=== PATIENT | female | born 1960 ===

== ENCOUNTER 2025-05-13 09:36 | Day surgery (SDC) | payer OTHER ==
[2025-05-09 12:22] VITALS: BP 160/90
[~2025-05-13] VITALS: Ht 157.5 cm; Wt 62.6 kg
[~2025-05-13 09:36] MED LIST: LEXAPRO5 MG PO; LOSARTAN POTASS25 MG PO; PEPCID AC20 MG PO; PROGRAF PO; [UNRECOGNIZED DRUG - OTHER] PO
[2025-05-13] MEDS ORDERED: CEFTRIAXONE SODIUM 2,000 MG VIAL ONE (10:01)
[2025-05-13] MEDS ORDERED: METRONIDAZOLE/SODIUM CHLORIDE 500 MG/100 ML PIGGYBACK IV ONE (10:01)
[2025-05-13] MEDS ORDERED: TRAM1TAB98 PO (12:11)
[2025-05-13] MEDS ORDERED: COLACE100 MG PO (12:11)
[2025-05-13] MEDS ORDERED: LIDOCAINE HCL 1%/EPINEPHRINE 20ML VIAL IJ ONE (13:00)
[2025-05-13] MEDS ORDERED: BUPIVACAINE HCL/PF 0.25% 30ML VIAL InF ONE (13:00)
[2025-05-13] MEDS ORDERED: HEMOSTATIC MATRIX 1 KIT KIT TOP ONE (13:00)
[2025-05-13] MEDS ORDERED: DIBUCAINE 30 GM TUBE RECTAL ONE (13:00)
[2025-05-13] MEDS ORDERED: POVIDONE-IODINE 118 ML BOTT TOP ONE (13:00)
== END 2025-05-13 16:20 | disposition home or self-care (01) ==
LOC: CIR.AMB 09:36
PROVIDERS: ATTEND Surgery
DX: D01.3 Carcinoma in situ of anus and anal canal (principal); K62.89 Other specified diseases of anus and rectum